=== PATIENT | male | born 1960 | race Caucasian/White ===

== ENCOUNTER 2017-10-09 07:30 | Day surgery (SDC) | payer OTHER ==
[~2017-10-09] VITALS: Ht 182.9 cm; Wt 90.0 kg
[2017-10-09 07:46] VITALS: BP 146/95
[2017-10-09] MEDS ORDERED: LOSA1TAB25 PO (07:53)
[2017-10-09] MEDS ORDERED: LACTATED RINGERS 1,000 ML IV SCH (07:53)
[2017-10-09] MEDS ORDERED: CALCIUM (07:53)
[2017-10-09] MEDS ORDERED: CLONIDINE (07:53)
[2017-10-09] MEDS ORDERED: AMLO10TA2 PO (07:53)
[2017-10-09] MEDS ORDERED: BENA20TA2 PO (07:53)
[2017-10-09] MEDS ORDERED: [UNRECOGNIZED DRUG - REMARK] (08:21)
[2017-10-09] MEDS ORDERED: ACETAMINOPHEN 500 MG TABLET ONE (08:44)
[2017-10-09] MEDS ORDERED: OXYcodone IR 5MG TABLET ONE (08:44)
[2017-10-09] MEDS ORDERED: GABAPENTIN 300 MG CAPSULE ONE (08:44)
[2017-10-09] MEDS ORDERED: BUPIVACAINE/PF 0.5% ONE ×2 (08:53→10:14)
[2017-10-09] MEDS ORDERED: EPINEPHRINE 1 MG/ML, 1ML ONE (08:54)
[2017-10-09] MEDS ORDERED: OXYcodone IR 5MG TABLET PO ONE (09:00)
[2017-10-09] MEDS ORDERED: GABAPENTIN 300 MG CAPSULE PO ONE (09:00)
[2017-10-09] MEDS ORDERED: ACETAMINOPHEN 500 MG TABLET PO ONE (09:00)
[2017-10-09] MEDS ORDERED: SUCCINYLCHOLINE 20 MG/ML, 10ML ONE (09:25)
[2017-10-09] MEDS ORDERED: DEXAMETHASONE 4 MG/ML, 1ML ONE (09:25)
[2017-10-09] MEDS ORDERED: PROPOFOL 10 MG/ML, 20ML ONE (09:25)
[2017-10-09] MEDS ORDERED: CEFAZOLIN 1,000 MG ONE (09:25)
[2017-10-09] MEDS ORDERED: ONDANSETRON 2MG/ML, 2ML ONE (09:25)
[2017-10-09] MEDS ORDERED: ROCURONIUM 10 MG/ML,10ML ONE (09:25)
[2017-10-09] MEDS ORDERED: HYDROmorphone 1 MG/ML, 1ML IV PRN (10:00)
[2017-10-09] MEDS ORDERED: hydrALAzine 20 MG/ML, 1ML IV PRN (10:00)
[2017-10-09] MEDS ORDERED: METOCLOPRAMIDE 5 MG/ML, 2ML IV PRN (10:00)
[2017-10-09] MEDS ORDERED: ALBUTEROL/IPRATROPIUM 2.5MG/0.5MG, 3 ML NPPB PRN (10:00)
[2017-10-09] MEDS ORDERED: HYDROcodone/APAP 7.5-325MG/15ML UDC PO PRN (10:00)
[2017-10-09] MEDS ORDERED: ONDANSETRON 2MG/ML, 2ML IVPush PRN (10:00)
[2017-10-09] MEDS ORDERED: MEPERIDINE/PF 25MG/0.5ML IVPush PRN (10:00)
[2017-10-09] MEDS ORDERED: morphine SULFATE 10 MG/ML, 1ML IV PRN (10:00)
[2017-10-09] MEDS ORDERED: PROMETHAZINE 25 MG/ML, 1ML IV PRN (10:00)
[2017-10-09] MEDS ORDERED: ALBUTEROL SULFATE 2.5 MG/3 ML NPPB PRN (10:00)
[2017-10-09] MEDS ORDERED: LABETALOL 5MG/ML, 20ML IV PRN (10:00)
[2017-10-09] MEDS ORDERED: FENTANYL PF 100 MCG/2ML IV PRN (10:00)
[2017-10-09] MEDS ORDERED: BUPIVACAINE/PF 0.5% INFIL ONE (10:18)
[2017-10-09] MEDS ORDERED: NEOSPORIN OINT, 15GM ONE (10:29)
[2017-10-09] MEDS ORDERED: NEOSPORIN OINT, 15GM TP ONE (10:31)
[2017-10-09] MEDS ORDERED: OXYcodone/APAP 5/325MG TABLET PO PRN (11:00)
[2017-10-09] MEDS ORDERED: ONDANSETRON 2MG/ML, 2ML IV PRN (11:00)
== END 2017-10-09 13:10 ==
LOC: OUT 07:30
PROVIDERS: ATTEND Urology
DX: N43.41 Spermatocele of epididymis, single (principal); N43.3 Hydrocele, unspecified
CPT/HCPCS: 54840; 55040; J0171; J0330; J0690; J1100; J2405; J2704; J3490; J7120